=== PATIENT | female | born 1950 | race Two or more races ===

== ENCOUNTER 2020-04-07 08:49 | Emergency (ER) | payer BC, SELFPAY ==
[~2020-04-07] VITALS: Ht 157.5 cm; Wt 54.0 kg
[2020-04-07] MEDS ORDERED: ONDANSETRON 4MG ODT PO ONE (09:30)
[2020-04-07] MEDS ORDERED: LORAZEPAM 1MG TABLET PO ONE (09:30)
[2020-04-07 11:30] VITALS: BP 129/66
== END 2020-04-07 11:32 | disposition home or self-care (01) ==
LOC: ER 09:06
DX: F12.929 Cannabis use, unspecified with intoxication, unspecified (principal)
CPT/HCPCS: 93005; 99283; Q0162

== ENCOUNTER 2020-08-09 09:36 | Emergency (ER) | payer BC ==
[~2020-08-09] VITALS: Ht 154.9 cm; Wt 57.0 kg
[2020-08-09] MEDS ORDERED: MECLIZINE 25MG TABLET PO ONE (10:45)
[2020-08-09] MEDS ORDERED: SODIUM CHLORIDE 0.9% 1,000 ML IV ONE (10:45)
[2020-08-09 10:51] LABS: EOSINOPHILS % 5.8 % (0.0-5.0); HEMATOCRIT. 41.1 % (36.0-48.0); HEMOGLOBIN. 13.8 g/dL (12.0-16.0); LYMPHOCYTES % 32.3 % (20.0-50.0); MEAN CORPUSCULAR HEMOGLOBIN 29.6 pg (28.0-32.0); MEAN CORPUSCULAR VOLUME 88.3 fL (81.0-99.0); MEAN PLATELET VOLUME 7.5 fl (7.4-10.4); MONOCYTES % 8.1 % (2.0-8.0); NEUTROPHILS % 52.8 % (40.0-76.0); PLATELET 271 x1000/uL (130-400); RED BLOOD CELL COUNT 4.66 mill/uL (4.2-5.4); RED CELL DISTRIBUTION WIDTH 14.2 % (11.6-14.6)
[2020-08-09 10:58] LABS: CHLORIDE 107 mEq/L (98-107)
[2020-08-09 20:30] VITALS: BP 140/49
== END 2020-08-09 20:51 | disposition short-term general hospital (02) ==
LOC: ER 09:36 → CANBEDREQ 20:54
DX: R42 Dizziness and giddiness (principal); T50.B95A Adverse effect of other viral vaccines, initial encounter; Y92.89 Other specified places as the place of occurrence of the external cause; E86.0 Dehydration
CPT/HCPCS: 36415; 70450; 71045; 80053; 83735; 83880; 84484; 85025; 93005; 96360; 96361; 99285; J7030; J8597